=== PATIENT | male | born 1960 | race Caucasian/White ===

== ENCOUNTER 2021-07-18 17:49 | Inpatient (IN) | payer MEDICARE, OTHER ==
[~2021-07-18] VITALS: Ht 172.7 cm; Wt 96.0 kg
[2021-07-18] MEDS ORDERED: ONDANSETRON HCL 4 MG/2 ML VIAL IV ONE (21:00)
[2021-07-18 22:28] LABS: Basophils # (auto) 0 10 ^3/uL (0-0.2); Basophils % (auto) 0.2 % (0.0-2.0); Eosinophils # (auto) 0.1 10 ^3/uL (0-0.8); Eosinophils % (auto) 0.6 % (0.0-7.0); Hematocrit 29.2 % (41.0-53.0); Hemoglobin 9.3 g/dL (13.5-17.5); Lymphocytes # (auto) 0.7 10 ^3/uL (0.4-5.4); Lymphocytes % (auto) 4.3 % (10.0-50.0); Mean Corpuscular Hemoglobin 30.6 pg (28.0-32.0); Mean Corpuscular Hgb Conc. 31.8 g/dL (32.0-36.0); Monocytes # (auto) 1.5 10 ^3/uL (0-1.3); Monocytes % (auto) 9.5 % (0.0-12.0); Neutrophils # (auto) 13.7 10 ^3/uL (1.6-8.6); Neutrophils % (auto) 85.4 % (37.0-80.0); Red Blood Cells 3.04 10^6/uL (4.5-5.90); White Blood Cell 16.1 10^3/uL (4.4-10.8)
[2021-07-18 22:29] LABS: Red Cell Distribution Width 20.6 % (11.8-14.3)
[2021-07-18 22:46] LABS: Albumin 1.8 g/dL (3.4-5.0); Calcium 8.6 mg/dL (8.5-10.1); Potassium 3.5 mmol/L (3.5-5.1)
[2021-07-18 22:51] LABS: BUN/Creatinine Ratio 10.3; Bilirubin, Total 0.8 mg/dL (0.2-1.0); Total Protein 5.4 g/dL (6.4-8.2)
[2021-07-18] MEDS ORDERED: VANCOMYCIN PER PHARMACY 0 MG IV ONE (23:15)
[2021-07-18] MEDS ORDERED: PIPERACILLIN-TAZO 4.5GM 100 ML IV ONE (23:15)
[2021-07-18] MEDS ORDERED: IOHEXOL 300 MG/ML 100ML BOTTLE IJ ONE (23:18)
[2021-07-19] MEDS: ALBUMIN 25% 50 ML IV SCH ×3 (05:30→21:59)
[2021-07-19] MEDS ORDERED: DOCUSATE SOD 100 MG CAP PO PRN (05:30)
[2021-07-19] MEDS ORDERED: VANCOMYCIN PER PHARMACY 0 MG IV SCH (05:30)
[2021-07-19] MEDS ORDERED: NITROGLYCERIN 0.4 MG SL TAB SL PRN (05:30)
[2021-07-19] MEDS ORDERED: ONDANSETRON HCL 4 MG/2 ML VIAL IV PRN (05:30)
[2021-07-19] MEDS ORDERED: MORPHINE SULFATE INJECTION 2 MG/ML SYRG IV PRN (05:30)
[2021-07-19] MEDS ORDERED: ACETAMINOPHEN 325 MG TAB PO PRN (05:30)
[2021-07-19] MEDS: SODIUM CHLOR 0.9% PF (SALINE LOCK) 10ML VIAL/SYR IV SCH ×3 (06:00→22:12)
[2021-07-19] MEDS ORDERED: ALBUTEROL SULF HFA 90MCG INH 200DOSE IN SCH (06:00)
[2021-07-19] MEDS ORDERED: VANCOMYCIN 1GM/250ML 250 ML IV ONE (06:15)
[2021-07-19 07:44] LABS: Basophils # (auto) 0 10 ^3/uL (0-0.2); Basophils % (auto) 0.3 % (0.0-2.0); Eosinophils # (auto) 0.1 10 ^3/uL (0-0.8); Eosinophils % (auto) 0.6 % (0.0-7.0); Hematocrit 28.1 % (41.0-53.0); Lymphocytes # (auto) 0.6 10 ^3/uL (0.4-5.4); Lymphocytes % (auto) 3.6 % (10.0-50.0); Mean Corpuscular Hemoglobin 30.8 pg (28.0-32.0); Mean Corpuscular Hgb Conc. 31.9 g/dL (32.0-36.0); Mean Corpuscular Volume 96.7 fL (80.0-100.0); Monocytes # (auto) 1.5 10 ^3/uL (0-1.3); Monocytes % (auto) 9.2 % (0.0-12.0); Neutrophils # (auto) 14.1 10 ^3/uL (1.6-8.6); Neutrophils % (auto) 86.3 % (37.0-80.0); Red Blood Cells 2.91 10^6/uL (4.5-5.90); Red Cell Distribution Width 20.6 % (11.8-14.3); White Blood Cell 16.4 10^3/uL (4.4-10.8)
[2021-07-19 07:51] LABS: Calcium 8.3 mg/dL (8.5-10.1); Potassium 3.6 mmol/L (3.5-5.1)
[2021-07-19 07:55] LABS: Albumin 1.6 g/dL (3.4-5.0); BUN/Creatinine Ratio 10.9
[2021-07-19] MEDS: SEVELAMER 800 MG TAB PO SCH ×3 (08:00→18:00)
[2021-07-19 08:04] LABS: Total Protein 5.2 g/dL (6.4-8.2)
[2021-07-19] MEDS: PIPERACILLIN-TAZOB 2.25GM 50 ML IV SCH ×3 (09:39→22:12)
[2021-07-19] MEDS: B-COMPLEX W/ C & FOLIC ACID(NEPHROVITE TAB) PO SCH (10:00)
[2021-07-19] MEDS: FAMOTIDINE (10MG/ML) 2ML VL IV SCH (10:00)
[2021-07-19] MEDS: ZINC SULFATE 220mg CAP or TAB PO SCH (10:00)
[2021-07-19] MEDS: APIXABAN 2.5 MG TAB PO SCH ×2 (10:00→22:12)
[2021-07-19] MEDS: ASCORBIC ACID 500 MG TAB PO SCH ×2 (10:00→22:12)
[2021-07-19] MEDS: AMIODARONE HCL 200 MG TAB PO SCH ×2 (10:00→22:12)
[2021-07-19 15:30] VITALS: BP 84/59
[2021-07-19 16:56] VITALS: BP 84/59
[2021-07-19] MEDS: SODIUM CHLORIDE 0.9% 1,000 ML IV SCH (17:15)
[2021-07-19 18:25] VITALS: BP 91/51
[2021-07-19 22:17] VITALS: BP 82/56
[2021-07-20] MEDS: SODIUM CHLORIDE 0.9% 1,000 ML IV SCH ×4 (00:43→09:41)
[2021-07-20 05:17] VITALS: BP 83/61
[2021-07-20] MEDS: PIPERACILLIN-TAZOB 2.25GM 50 ML IV SCH ×4 (05:57→22:07)
[2021-07-20] MEDS: SODIUM CHLOR 0.9% PF (SALINE LOCK) 10ML VIAL/SYR IV SCH ×3 (05:58→22:07)
[2021-07-20 06:08] LABS: Basophils # (auto) 0 10 ^3/uL (0-0.2); Basophils % (auto) 0.2 % (0.0-2.0); Eosinophils # (auto) 0.2 10 ^3/uL (0-0.8); Eosinophils % (auto) 1.1 % (0.0-7.0); Hematocrit 26.6 % (41.0-53.0); Lymphocytes # (auto) 0.7 10 ^3/uL (0.4-5.4); Lymphocytes % (auto) 4.3 % (10.0-50.0); Mean Corpuscular Hemoglobin 32.1 pg (28.0-32.0); Mean Corpuscular Hgb Conc. 33.9 g/dL (32.0-36.0); Mean Corpuscular Volume 94.7 fL (80.0-100.0); Monocytes # (auto) 1.3 10 ^3/uL (0-1.3); Monocytes % (auto) 8.2 % (0.0-12.0); Neutrophils # (auto) 13.9 10 ^3/uL (1.6-8.6); Neutrophils % (auto) 86.2 % (37.0-80.0); Nucleated Red Blood Cells % 0.1 %; Red Blood Cells 2.81 10^6/uL (4.5-5.90); White Blood Cell 16.1 10^3/uL (4.4-10.8)
[2021-07-20 06:26] LABS: Albumin 1.7 g/dL (3.4-5.0); Calcium 8.2 mg/dL (8.5-10.1); Potassium 4.5 mmol/L (3.5-5.1)
[2021-07-20 06:31] LABS: Bilirubin, Total 1.2 mg/dL (0.2-1.0); Total Protein 5.3 g/dL (6.4-8.2)
[2021-07-20 08:00] VITALS: BP 102/56
[2021-07-20] MEDS: SEVELAMER 800 MG TAB PO SCH ×3 (08:42→17:30)
[2021-07-20] MEDS: ASCORBIC ACID 500 MG TAB PO SCH ×2 (09:40→22:08)
[2021-07-20] MEDS: ZINC SULFATE 220mg CAP or TAB PO SCH (09:40)
[2021-07-20] MEDS: AMIODARONE HCL 200 MG TAB PO SCH ×2 (09:40→22:07)
[2021-07-20] MEDS: FAMOTIDINE (10MG/ML) 2ML VL IV SCH (09:40)
[2021-07-20] MEDS: B-COMPLEX W/ C & FOLIC ACID(NEPHROVITE TAB) PO SCH (09:40)
[2021-07-20] MEDS: APIXABAN 2.5 MG TAB PO SCH ×2 (09:41→22:07)
[2021-07-20 12:00] VITALS: BP 99/62
[2021-07-20] MEDS ORDERED: VANCOMYCIN 1GM/250ML 250 ML IV ONE (13:30)
[2021-07-20] MEDS ORDERED: FUROSEMIDE 40 MG/4 ML VIAL IV ONE (13:30)
[2021-07-20 16:00] VITALS: BP 116/53
[2021-07-20 22:00] VITALS: BP 95/48
[2021-07-21 05:00] VITALS: BP 92/54
[2021-07-21] MEDS: SODIUM CHLOR 0.9% PF (SALINE LOCK) 10ML VIAL/SYR IV SCH ×3 (05:28→21:52)
[2021-07-21] MEDS: PIPERACILLIN-TAZOB 2.25GM 50 ML IV SCH ×4 (05:28→21:52)
[2021-07-21 08:54] LABS: Basophils # (auto) 0.1 10 ^3/uL (0-0.2); Basophils % (auto) 0.3 % (0.0-2.0); Eosinophils # (auto) 0.1 10 ^3/uL (0-0.8); Eosinophils % (auto) 0.7 % (0.0-7.0); Hematocrit 26.6 % (41.0-53.0); Hemoglobin 8.6 g/dL (13.5-17.5); Lymphocytes # (auto) 0.7 10 ^3/uL (0.4-5.4); Lymphocytes % (auto) 3.6 % (10.0-50.0); Mean Corpuscular Hemoglobin 31.2 pg (28.0-32.0); Mean Corpuscular Hgb Conc. 32.4 g/dL (32.0-36.0); Mean Corpuscular Volume 96.3 fL (80.0-100.0); Monocytes # (auto) 1.3 10 ^3/uL (0-1.3); Neutrophils # (auto) 16.9 10 ^3/uL (1.6-8.6); Neutrophils % (auto) 88.4 % (37.0-80.0); Nucleated Red Blood Cells % 0.1 %; Red Blood Cells 2.76 10^6/uL (4.5-5.90); Red Cell Distribution Width 20.2 % (11.8-14.3); White Blood Cell 19.2 10^3/uL (4.4-10.8)
[2021-07-21 09:00] VITALS: BP 100/72
[2021-07-21 09:10] LABS: BUN/Creatinine Ratio 12.5; Calcium 8.5 mg/dL (8.5-10.1)
[2021-07-21] MEDS: APIXABAN 2.5 MG TAB PO SCH ×2 (10:46→21:52)
[2021-07-21] MEDS: SEVELAMER 800 MG TAB PO SCH ×4 (10:46→18:00)
[2021-07-21] MEDS: AMIODARONE HCL 200 MG TAB PO SCH ×2 (10:46→21:52)
[2021-07-21] MEDS: ASCORBIC ACID 500 MG TAB PO SCH ×2 (10:46→21:53)
[2021-07-21] MEDS: ZINC SULFATE 220mg CAP or TAB PO SCH (10:47)
[2021-07-21] MEDS: B-COMPLEX W/ C & FOLIC ACID(NEPHROVITE TAB) PO SCH (10:47)
[2021-07-21] MEDS: FAMOTIDINE (10MG/ML) 2ML VL IV SCH (10:48)
[2021-07-21 13:00] VITALS: BP 97/68
[2021-07-21 17:38] VITALS: BP 100/74
[2021-07-21 22:00] VITALS: BP 101/64
[2021-07-22 05:00] VITALS: BP 105/70
[2021-07-22] MEDS: PIPERACILLIN-TAZOB 2.25GM 50 ML IV SCH ×3 (05:55→22:03)
[2021-07-22] MEDS: SODIUM CHLOR 0.9% PF (SALINE LOCK) 10ML VIAL/SYR IV SCH ×3 (05:55→22:02)
[2021-07-22] MEDS ORDERED: SODIUM CHL 0.9% 1000 ML BAG XX ONE (07:00)
[2021-07-22 09:00] VITALS: BP 95/57
[2021-07-22] MEDS: SEVELAMER 800 MG TAB PO SCH ×3 (09:36→17:56)
[2021-07-22] MEDS: AMIODARONE HCL 200 MG TAB PO SCH ×2 (12:43→22:04)
[2021-07-22] MEDS: FAMOTIDINE (10MG/ML) 2ML VL IV SCH (12:43)
[2021-07-22] MEDS: APIXABAN 2.5 MG TAB PO SCH ×2 (12:43→22:03)
[2021-07-22] MEDS: ZINC SULFATE 220mg CAP or TAB PO SCH (12:43)
[2021-07-22] MEDS: B-COMPLEX W/ C & FOLIC ACID(NEPHROVITE TAB) PO SCH (12:44)
[2021-07-22] MEDS: ASCORBIC ACID 500 MG TAB PO SCH ×2 (12:44→22:03)
[2021-07-22 13:00] VITALS: BP 100/62
[2021-07-22] MEDS ORDERED: VANCOMYCIN 500 MG in D5W 5% 100 ML IV ONE (16:00)
[2021-07-22 16:53] VITALS: BP 95/60
[2021-07-22] MEDS: ALBUMIN 25% 100 ML IV SCH ×2 (18:31→20:27)
[2021-07-22] MEDS: MORPHINE SULFATE 4 MG/ML SYR/VIAL IV PRN (20:58)
[2021-07-22] MEDS ORDERED: EPOETIN ALFA-EPBX 4,000 UNIT/ML VIAL SC ONE (21:00)
[2021-07-22 22:00] VITALS: BP 94/54
[2021-07-23] VITALS (10 sets, daily range): BP systolic 82–117; BP diastolic 34–55
[2021-07-23] MEDS: PIPERACILLIN-TAZOB 2.25GM 50 ML IV SCH ×3 (05:44→21:34)
[2021-07-23] MEDS: SODIUM CHLOR 0.9% PF (SALINE LOCK) 10ML VIAL/SYR IV SCH ×3 (05:44→21:34)
[2021-07-23] MEDS: SEVELAMER 800 MG TAB PO SCH ×3 (08:30→17:48)
[2021-07-23] MEDS: B-COMPLEX W/ C & FOLIC ACID(NEPHROVITE TAB) PO SCH (09:33)
[2021-07-23] MEDS: APIXABAN 2.5 MG TAB PO SCH ×2 (09:33→21:01)
[2021-07-23] MEDS: ASCORBIC ACID 500 MG TAB PO SCH ×2 (09:33→21:35)
[2021-07-23] MEDS: ZINC SULFATE 220mg CAP or TAB PO SCH (09:33)
[2021-07-23] MEDS: FAMOTIDINE (10MG/ML) 2ML VL IV SCH (09:33)
[2021-07-23] MEDS: AMIODARONE HCL 200 MG TAB PO SCH ×2 (09:33→21:34)
[2021-07-23] MEDS: ALBUMIN 25% 100 ML IV SCH ×2 (12:31→20:15)
[2021-07-23] MEDS: HYDROcodone-ACET 5/325MG TAB PO PRN (12:44)
[2021-07-23] MEDS ORDERED: AMIODARONE HCL 150 MG in D5W 5% 100 ML IV ONE (16:00)
[2021-07-23] MEDS ORDERED: SODIUM CHLORIDE 0.9% 500 ML IV ONE (20:00)
[2021-07-23 21:24] LABS: Hematocrit 24.2 % (41.0-53.0); Hemoglobin 7.6 g/dL (13.5-17.5)
[2021-07-23] MEDS: PANTOPRAZOLE 40 MG/10 ML VIAL INJ IV SCH (21:34)
[2021-07-24] VITALS (45 sets, daily range): BP systolic 78–108; BP diastolic 43–74
[2021-07-24] MEDS: NOREPINEPHRINE 8 MG/250ML KIT 250 ML IV SCH ×2 (03:59→22:45)
[2021-07-24] MEDS: ALBUMIN 25% 100 ML IV SCH (03:59)
[2021-07-24 05:19] LABS: Basophils # (auto) 0.1 10 ^3/uL (0-0.2); Basophils % (auto) 0.4 % (0.0-2.0); Eosinophils # (auto) 0.2 10 ^3/uL (0-0.8); Eosinophils % (auto) 1.4 % (0.0-7.0); Hematocrit 24.5 % (41.0-53.0); Hemoglobin 7.8 g/dL (13.5-17.5); Lymphocytes # (auto) 0.7 10 ^3/uL (0.4-5.4); Lymphocytes % (auto) 4.7 % (10.0-50.0); Mean Corpuscular Hemoglobin 31.1 pg (28.0-32.0); Mean Corpuscular Hgb Conc. 31.9 g/dL (32.0-36.0); Mean Corpuscular Volume 97.3 fL (80.0-100.0); Monocytes % (auto) 7.3 % (0.0-12.0); Neutrophils # (auto) 12.2 10 ^3/uL (1.6-8.6); Neutrophils % (auto) 86.2 % (37.0-80.0); Nucleated Red Blood Cells % 0.3 %; Red Blood Cells 2.52 10^6/uL (4.5-5.90); Red Cell Distribution Width 19.7 % (11.8-14.3); White Blood Cell 14.1 10^3/uL (4.4-10.8)
[2021-07-24 05:32] LABS: Potassium 5.1 mmol/L (3.5-5.1)
[2021-07-24 05:39] LABS: Albumin 2.8 g/dL (3.4-5.0); BUN/Creatinine Ratio 12.1; Bilirubin, Total 1.5 mg/dL (0.2-1.0); Calcium 8.7 mg/dL (8.5-10.1); Magnesium 2.7 mg/dL (1.6-2.6)
[2021-07-24] MEDS: SODIUM CHLOR 0.9% PF (SALINE LOCK) 10ML VIAL/SYR IV SCH ×3 (06:00→21:30)
[2021-07-24] MEDS: PIPERACILLIN-TAZOB 2.25GM 50 ML IV SCH ×3 (06:00→21:30)
[2021-07-24] MEDS ORDERED: SODIUM CHL 0.9% 1000 ML BAG XX ONE (07:00)
[2021-07-24] MEDS: SEVELAMER 800 MG TAB PO SCH ×3 (10:00→18:00)
[2021-07-24] MEDS: ASCORBIC ACID 500 MG TAB PO SCH ×2 (10:00→21:31)
[2021-07-24] MEDS: ZINC SULFATE 220mg CAP or TAB PO SCH (10:00)
[2021-07-24] MEDS: B-COMPLEX W/ C & FOLIC ACID(NEPHROVITE TAB) PO SCH (10:00)
[2021-07-24] MEDS: PANTOPRAZOLE 40 MG/10 ML VIAL INJ IV SCH ×2 (11:05→21:30)
[2021-07-24] MEDS: AMIODARONE HCL 200 MG TAB PO SCH ×2 (11:06→21:30)
[2021-07-24] MEDS ORDERED: PANTOPRAZOLE 40mg/50ML NS AE 50 ML IV SCH (11:30)
[2021-07-24] MEDS ORDERED: OCTREOTIDE ACETATE 500 MCG in SODIUM CHL 0.9% 99 ML IV SCH (11:30)
[2021-07-24 12:52] LABS: Hepatitis A Ab IgM Negative
[2021-07-24 13:17] LABS: Hepatitis B Core IgM Negative
[2021-07-24 13:32] LABS: Hepatitis C Antibody Negative (Negative)
[2021-07-24] MEDS ORDERED: IOHEXOL 350 MG/ML 100ML IJ ONE (15:51)
[2021-07-24 19:06] LABS: INR 1.79 (0.9-1.15)
[2021-07-24] MEDS ORDERED: EPOETIN ALFA-EPBX 10,000 UNIT/1ML VIAL SC ONE (21:00)
[2021-07-24] MEDS: MORPHINE SULFATE 4 MG/ML SYR/VIAL IV PRN (22:22)
[2021-07-24 22:56] LABS: Folate (Folic Acid) 8.49 ng/mL (5.38-24)
[2021-07-24] MEDS: HYDROcodone-ACET 5/325MG TAB PO PRN (23:46)
[2021-07-25] VITALS (77 sets, daily range): BP systolic 43–138; BP diastolic 20–83
[2021-07-25] MEDS: MORPHINE SULFATE 4 MG/ML SYR/VIAL IV PRN (05:40)
[2021-07-25] MEDS: SODIUM CHLOR 0.9% PF (SALINE LOCK) 10ML VIAL/SYR IV SCH ×3 (05:56→21:06)
[2021-07-25] MEDS: PIPERACILLIN-TAZOB 2.25GM 50 ML IV SCH ×3 (06:00→21:07)
[2021-07-25] MEDS: SEVELAMER 800 MG TAB PO SCH ×3 (08:00→18:00)
[2021-07-25] MEDS ORDERED: LORazepam 2MG/ML-1ML VIAL IV ONE (08:30)
[2021-07-25 08:49] LABS: Basophils # (auto) 0 10 ^3/uL (0-0.2); Basophils % (auto) 0.3 % (0.0-2.0); Eosinophils # (auto) 0.1 10 ^3/uL (0-0.8); Eosinophils % (auto) 0.7 % (0.0-7.0); Hemoglobin 9.8 g/dL (13.5-17.5); Lymphocytes # (auto) 0.6 10 ^3/uL (0.4-5.4); Mean Corpuscular Hemoglobin 31.2 pg (28.0-32.0); Mean Corpuscular Hgb Conc. 32.6 g/dL (32.0-36.0); Mean Corpuscular Volume 95.9 fL (80.0-100.0); Monocytes # (auto) 1.5 10 ^3/uL (0-1.3); Monocytes % (auto) 7.6 % (0.0-12.0); Neutrophils # (auto) 17.3 10 ^3/uL (1.6-8.6); Neutrophils % (auto) 88.4 % (37.0-80.0); Nucleated Red Blood Cells % 0.2 %; Red Blood Cells 3.13 10^6/uL (4.5-5.90); Red Cell Distribution Width 18.3 % (11.8-14.3); White Blood Cell 19.5 10^3/uL (4.4-10.8)
[2021-07-25] MEDS ORDERED: LIDOCAINE VISCOUS 2% 15ML UD ONE (09:06)
[2021-07-25] MEDS ORDERED: MIDAZOLAM HCL 5 MG/ML-1ML VIAL ONE (09:06)
[2021-07-25] MEDS ORDERED: SODIUM CHLORIDE LOCK 10 ML ONE (09:06)
[2021-07-25] MEDS ORDERED: diphenhdrAMINE HCL 50 MG/1 ML VL ONE (09:07)
[2021-07-25] MEDS ORDERED: fentaNYL CITRATE 100 MCG/2 ML VL ONE (09:07)
[2021-07-25 09:11] LABS: INR 1.57 (0.9-1.15)
[2021-07-25] MEDS: ASCORBIC ACID 500 MG TAB PO SCH ×2 (10:00→22:24)
[2021-07-25] MEDS: AMIODARONE HCL 200 MG TAB PO SCH ×2 (10:00→22:24)
[2021-07-25] MEDS: ZINC SULFATE 220mg CAP or TAB PO SCH (10:00)
[2021-07-25] MEDS ORDERED: FAMOTIDINE (10MG/ML) 2ML VL IV SCH (10:00)
[2021-07-25] MEDS: B-COMPLEX W/ C & FOLIC ACID(NEPHROVITE TAB) PO SCH (10:00)
[2021-07-25] MEDS ORDERED: EPINEPHrine HCL 1 MG/10 ML SYRG ONE (10:16)
[2021-07-25] MEDS ORDERED: VANCOMYCIN 1GM/250ML 250 ML IV ONE (12:45)
[2021-07-25] MEDS: PANTOPRAZOLE 40 MG/10 ML VIAL INJ IV SCH ×2 (13:10→21:06)
[2021-07-25] MEDS ORDERED: AMIODARONE HCL 150 MG in D5W 5% 100 ML IV ONE (13:15)
[2021-07-25] MEDS: ALBUMIN 25% 100 ML IV SCH ×2 (15:44→21:06)
[2021-07-25] MEDS: NOREPINEPHRINE 8 MG/250ML KIT 250 ML IV SCH (20:10)
[2021-07-25] MEDS: HYDROcodone-ACET 5/325MG TAB PO PRN (22:25)
[2021-07-26] VITALS (91 sets, daily range): BP systolic 86–113; BP diastolic 47–72
[2021-07-26] MEDS: NOREPINEPHRINE 8 MG/250ML KIT 250 ML IV SCH (01:29)
[2021-07-26] MEDS: ALBUMIN 25% 100 ML IV SCH ×3 (05:07→17:23)
[2021-07-26] MEDS: SODIUM CHLOR 0.9% PF (SALINE LOCK) 10ML VIAL/SYR IV SCH ×3 (06:52→14:00)
[2021-07-26] MEDS: PIPERACILLIN-TAZOB 2.25GM 50 ML IV SCH ×3 (06:53→14:00)
[2021-07-26] MEDS: NOREPINEPHRINE BITARTRATE 16 MG in SODIUM CHL 0.9% 234 ML IV SCH (07:45)
[2021-07-26] MEDS: SEVELAMER 800 MG TAB PO SCH (08:00)
[2021-07-26] MEDS: PANTOPRAZOLE 40 MG/10 ML VIAL INJ IV SCH ×2 (09:46)
[2021-07-26] MEDS: B-COMPLEX W/ C & FOLIC ACID(NEPHROVITE TAB) PO SCH (09:46)
[2021-07-26] MEDS: AMIODARONE HCL 200 MG TAB PO SCH ×2 (09:47→20:15)
[2021-07-26] MEDS: ZINC SULFATE 220mg CAP or TAB PO SCH (09:47)
[2021-07-26] MEDS: ASCORBIC ACID 500 MG TAB PO SCH ×2 (09:47→22:00)
[2021-07-26] MEDS ORDERED: NOREPINEPHRINE 8 MG/250ML KIT 250 ML IV ONE (14:00)
[2021-07-26] MEDS ORDERED: VANCOMYCIN 1GM/250ML 250 ML IV ONE (17:00)
[2021-07-26] MEDS: SERTRALINE HCL 50 MG TAB PO SCH (17:02)
[2021-07-26] MEDS ORDERED: AMIODARONE 450mg/250ml AE 250 ML IV SCH (20:45)
[2021-07-26] MEDS ORDERED: HALOPERIDOL LACTATE 5 MG/ML INJ VIAL ONE (22:57)
[2021-07-26] MEDS: HALOPERIDOL LACTATE 5 MG/ML INJ VIAL IM PRN (23:00)
[2021-07-27] VITALS (97 sets, daily range): BP systolic 80–121; BP diastolic 50–73
[2021-07-27] MEDS: NOREPINEPHRINE BITARTRATE 16 MG in SODIUM CHL 0.9% 234 ML IV SCH (02:30)
[2021-07-27] MEDS: AMIODARONE 450mg/250ml AE 250 ML IV SCH ×2 (02:51→19:00)
[2021-07-27] MEDS: ALBUMIN 25% 100 ML IV SCH (05:28)
[2021-07-27] MEDS: SODIUM CHLOR 0.9% PF (SALINE LOCK) 10ML VIAL/SYR IV SCH ×3 (06:13→20:58)
[2021-07-27] MEDS: PIPERACILLIN-TAZOB 2.25GM 50 ML IV SCH ×3 (06:49→20:58)
[2021-07-27] MEDS ORDERED: SODIUM CHL 0.9% 1000 ML BAG XX ONE (07:00)
[2021-07-27] MEDS: SEVELAMER 800 MG TAB PO SCH ×3 (08:00→18:00)
[2021-07-27 08:35] LABS: Basophils # (auto) 0.1 10 ^3/uL (0-0.2); Basophils % (auto) 0.8 % (0.0-2.0); Eosinophils # (auto) 0.1 10 ^3/uL (0-0.8); Eosinophils % (auto) 0.3 % (0.0-7.0); Hemoglobin 8.5 g/dL (13.5-17.5); Lymphocytes # (auto) 0.6 10 ^3/uL (0.4-5.4); Lymphocytes % (auto) 3.6 % (10.0-50.0); Mean Corpuscular Hemoglobin 31.3 pg (28.0-32.0); Mean Corpuscular Hgb Conc. 31.6 g/dL (32.0-36.0); Mean Corpuscular Volume 99.1 fL (80.0-100.0); Monocytes # (auto) 1.3 10 ^3/uL (0-1.3); Monocytes % (auto) 8.1 % (0.0-12.0); Neutrophils # (auto) 13.6 10 ^3/uL (1.6-8.6); Neutrophils % (auto) 87.2 % (37.0-80.0); Nucleated Red Blood Cells % 0.8 %; Red Blood Cells 2.73 10^6/uL (4.5-5.90); Red Cell Distribution Width 19.2 % (11.8-14.3); White Blood Cell 15.7 10^3/uL (4.4-10.8)
[2021-07-27 08:46] LABS: Calcium 8.8 mg/dL (8.5-10.1); Magnesium 2.7 mg/dL (1.6-2.6)
[2021-07-27] MEDS: ASCORBIC ACID 500 MG TAB PO SCH ×2 (10:00→21:20)
[2021-07-27] MEDS: ZINC SULFATE 220mg CAP or TAB PO SCH (10:00)
[2021-07-27] MEDS: SERTRALINE HCL 50 MG TAB PO SCH (10:00)
[2021-07-27] MEDS: B-COMPLEX W/ C & FOLIC ACID(NEPHROVITE TAB) PO SCH (10:00)
[2021-07-27] MEDS ORDERED: InsuLIN REG 1unit/0.01ml Soln (100units/ml) IV ONE (10:15)
[2021-07-27] MEDS ORDERED: DEXTROSE (50%) 50ML SYRG IV ONE (10:15)
[2021-07-27] MEDS: PANTOPRAZOLE 40 MG/10 ML VIAL INJ IV SCH ×2 (11:51→20:58)
[2021-07-27] MEDS: PHENYLEPHRINE IV 250 ML IV SCH ×2 (16:50→17:31)
[2021-07-27] MEDS: Nepro With Carbsteady ButterPecan 8oz Carton PO SCH (18:00)
[2021-07-27] MEDS: Juven Fruit Punch Powder PACKET 28.8gm PO SCH (18:00)
[2021-07-27] MEDS: HALOPERIDOL LACTATE 5 MG/ML INJ VIAL IM PRN (20:59)
[2021-07-28] VITALS (64 sets, daily range): BP systolic 72–108; BP diastolic 39–66
[2021-07-28] MEDS: PHENYLEPHRINE IV 250 ML IV SCH ×3 (01:10→11:25)
[2021-07-28] MEDS: NOREPINEPHRINE BITARTRATE 16 MG in SODIUM CHL 0.9% 234 ML IV SCH ×2 (03:43→09:00)
[2021-07-28] MEDS: PIPERACILLIN-TAZOB 2.25GM 50 ML IV SCH ×2 (06:00→14:00)
[2021-07-28] MEDS: SODIUM CHLOR 0.9% PF (SALINE LOCK) 10ML VIAL/SYR IV SCH ×2 (06:27→14:00)
[2021-07-28] MEDS: Nepro With Carbsteady ButterPecan 8oz Carton PO SCH (08:00)
[2021-07-28] MEDS: SEVELAMER 800 MG TAB PO SCH ×2 (08:00→12:00)
[2021-07-28] MEDS: Juven Fruit Punch Powder PACKET 28.8gm PO SCH (08:00)
[2021-07-28 08:22] LABS: Calcium 8.6 mg/dL (8.5-10.1); Potassium 4.8 mmol/L (3.5-5.1)
[2021-07-28] MEDS: AMIODARONE 450mg/250ml AE 250 ML IV SCH (09:36)
[2021-07-28] MEDS: ZINC SULFATE 220mg CAP or TAB PO SCH (10:00)
[2021-07-28] MEDS: ASCORBIC ACID 500 MG TAB PO SCH (10:00)
[2021-07-28] MEDS: SERTRALINE HCL 50 MG TAB PO SCH (10:00)
[2021-07-28] MEDS: B-COMPLEX W/ C & FOLIC ACID(NEPHROVITE TAB) PO SCH (10:00)
[2021-07-28] MEDS: PANTOPRAZOLE 40 MG/10 ML VIAL INJ IV SCH (10:07)
[2021-07-28 10:29] LABS: Hematocrit 27.9 % (41.0-53.0); Hemoglobin 9.1 g/dL (13.5-17.5); Mean Corpuscular Hemoglobin 32.9 pg (28.0-32.0); Mean Corpuscular Hgb Conc. 32.8 g/dL (32.0-36.0); Mean Corpuscular Volume 100.3 fL (80.0-100.0); Red Blood Cells 2.78 10^6/uL (4.5-5.90); Red Cell Distribution Width 19.3 % (11.8-14.3); White Blood Cell 13.3 10^3/uL (4.4-10.8)
[2021-07-28 10:34] LABS: Basophils % (manual) 0 (0.0-2.0); Blast Cells 0; Eosinophils % (manual) 0 (0-7); Metamyelocytes % 0; Myelocytes % 0; Promyelocytes % 0; Reactive Lymphocytes 0
[2021-07-28] MEDS ORDERED: VASOPRESSIN 50 UNITS in D5W 5% 247.5 ML IV SCH (10:45)
[2021-07-28 10:51] LABS: Albumin 2.5 g/dL (3.4-5.0); Calcium 8.4 mg/dL (8.5-10.1)
[2021-07-28 10:55] LABS: BUN/Creatinine Ratio 12.2; Bilirubin, Total 1.8 mg/dL (0.2-1.0); Total Protein 5.6 g/dL (6.4-8.2)
[2021-07-28 11:31] LABS: Band Neutrophils % (manual) 43; Lymphocytes % (manual) 7 (10.0-50.0); Monocytes % (manual) 1 (0-12)
[2021-07-28] MEDS ORDERED: PHENYLEPHRINE INJ 80 MG in SODIUM CHL 0.9% 242 ML IV SCH (11:45)
[2021-07-28] MEDS: MORPHINE SULFATE 4 MG/ML SYR/VIAL IV PRN (11:47)
== END 2021-07-28 16:20 | DRG 871 ==
LOC: ER 17:49 → EDBD 17:49 → TELE 07-19 05:20 → TELE-WESTW 07-19 15:27 → DOU IN ICU 07-23 23:12
PROVIDERS: ADMIT Nurse Practitioner Family; ATTEND Internal Medicine
PROC: 5A1D70Z Performance of Urinary Filtration, Intermittent, Less than 6 Hours Per Day (ICD-10-PCS; 2021-07-22)
PROC: 05HA33Z Insertion of Infusion Device into Left Brachial Vein, Percutaneous Approach (ICD-10-PCS; 2021-07-24)
PROC: B54NZZA Ultrasonography of Left Upper Extremity Veins, Guidance (ICD-10-PCS; 2021-07-24)
PROC: 5A1D70Z Performance of Urinary Filtration, Intermittent, Less than 6 Hours Per Day (ICD-10-PCS; 2021-07-25)
PROC: 0DJ08ZZ Inspection of Upper Intestinal Tract, Via Natural or Artificial Opening Endoscopic (ICD-10-PCS; 2021-07-25)
PROC: 30233K1 Transfusion of Nonautologous Frozen Plasma into Peripheral Vein, Percutaneous Approach (ICD-10-PCS; 2021-07-25)
PROC: 30233N1 Transfusion of Nonautologous Red Blood Cells into Peripheral Vein, Percutaneous Approach (ICD-10-PCS; principal; 2021-07-25 10:30)
PROC: 5A1D70Z Performance of Urinary Filtration, Intermittent, Less than 6 Hours Per Day (ICD-10-PCS; 2021-07-27)
PROC: 5A09457 Assistance with Respiratory Ventilation, 24-96 Consecutive Hours, Continuous Positive Airway Pressure (ICD-10-PCS; 2021-07-27)
DX: A41.9 Sepsis, unspecified organism (principal); G93.41 Metabolic encephalopathy; N18.6 End stage renal disease; J96.01 Acute respiratory failure with hypoxia; I50.23 Acute on chronic systolic (congestive) heart failure; K29.71 Gastritis, unspecified, with bleeding; L03.116 Cellulitis of left lower limb; E87.1 Hypo-osmolality and hyponatremia; L03.115 Cellulitis of right lower limb; E03.9 Hypothyroidism, unspecified; I48.91 Unspecified atrial fibrillation; E83.59 Other disorders of calcium metabolism; E87.5 Hyperkalemia; E88.09 Other disorders of plasma-protein metabolism, not elsewhere classified; Z20.822 Contact with and (suspected) exposure to COVID-19; G62.9 Polyneuropathy, unspecified; I73.9 Peripheral vascular disease, unspecified; D63.1 Anemia in chronic kidney disease; Z91.19 Patient's noncompliance with other medical treatment and regimen
CPT/HCPCS: 36415; 36600; 43235; 71045; 73701; 75635; 80048; 80053; 80074; 80202; 82140; 82565; 82607; 82746; 82805; 83605; 83735; 83880; 84443; 85007; 85014; 85018; 85025; 85027; 85610; 85730; 86850; 86900; 86901; 86920; 87040; 87081; 87426; 90935; 93005; 93925; 94660; 96365; 96366; 96367; 96375; A4565; C9113; G0378; J1642; J1815; J2250; J2405; J2543; J3490; J7060; P9047